=== PATIENT | male | born 1960 | race Caucasian/White ===

== ENCOUNTER 2018-03-31 08:35 | Observation (INO) | payer BC, OTHER ==
[~2018-03-31] VITALS: Ht 170.2 cm; Wt 78.7 kg
[2018-03-31] MEDS ORDERED: APIX5TAB PO (09:04)
[2018-03-31] MEDS ORDERED: METO25TA35 PO (09:04)
[2018-03-31] MEDS ORDERED: ASPIRIN 81 MG TABLET CHEW ONE (09:27)
[2018-03-31] MEDS ORDERED: ASPIRIN 81 MG TABLET CHEW PO ONE (09:30)
[2018-03-31 09:31] LABS: BASOPHILS # (AUTO) 0.04 x10^3/uL (0-0.1); BASOPHILS % (AUTO) 1 % (0-1); EOSINOPHILS # (AUTO) 0.07 x10^3/uL (0-0.4); EOSINOPHILS % (AUTO) 1 % (1-7); LYMPHOCYTES # (AUTO) 1.98 x10^3/uL (1-3.4); LYMPHOCYTES % (AUTO) 30 % (22-44); MD NO; MEAN CORPUSCULAR HEMOGLOBIN 32.4 pg (27.5-34.5); MEAN CORPUSCULAR HGB CONC 34.8 g/dL (33.2-36.2); MEAN CORPUSCULAR VOLUME 93.2 fL (81-97); MEAN PLATELET VOLUME 6.7 fL (7.4-10.4); MONOCYTES # (AUTO) 0.33 x10^3/uL (0.2-0.8); MONOCYTES % (AUTO) 5 % (2-9); NEUTROPHILS % (AUTO) 63 % (42-75); PLATELET COUNT 383 x10^3/uL (130-400); RED BLOOD COUNT 4.56 x10^6/uL (4.38-5.82); RED CELL DISTRIBUTION WIDTH 13.6 % (9.4-14.8)
[2018-03-31 09:42] LABS: ALANINE AMINOTRANSFERASE 23 U/L (12-78); ALBUMIN 3.7 g/dL (3.4-5.0); ANION GAP 6 mmol/L (5-15); CALCIUM 8.5 mg/dL (8.5-10.1); CHLORIDE 107 mmol/L (98-107); CREATININE 1.09 mg/dL (0.7-1.3)
[2018-03-31 09:47] LABS: ALKALINE PHOSPHATASE 46 U/L (45-117); BILIRUBIN,TOTAL 0.4 mg/dL (0.2-1.0); TOTAL PROTEIN 7.5 g/dL (6.4-8.2); TROPONIN I < 0.015 ng/mL (0.000-0.045)
[2018-03-31] MEDS ORDERED: SODIUM CHLORIDE FLUSH 10ML SYR IVF PRN (11:00)
[2018-03-31] MEDS ORDERED: ONDANSETRON ODT 4 MG PO PRN (11:30)
[2018-03-31] MEDS ORDERED: ONDANSETRON 2MG/ML, 2ML IVPush PRN (11:30)
[2018-03-31] MEDS ORDERED: DOCUSATE 100 MG CAPSULE PO PRN (11:30)
[2018-03-31] MEDS ORDERED: LABETALOL 5MG/ML, 20ML IVPush PRN (11:30)
[2018-03-31] MEDS ORDERED: ENALAPRILAT 1.25 MG/ML, 2ML IVPush PRN (11:30)
[2018-03-31] MEDS ORDERED: BISACODYL 10 MG SUPP PR PRN (11:30)
[2018-03-31] MEDS: SODIUM CHLORIDE 0.9% 1,000 ML IV SCH (12:08)
[2018-03-31 12:21] VITALS: BP 142/88
[2018-03-31 13:12] VITALS: BP 126/78
[2018-03-31 15:11] LABS: TROPONIN I < 0.015 ng/mL (0.000-0.045)
[2018-03-31 20:26] VITALS: BP 121/67
[2018-03-31] MEDS: APIXABAN 5 MG TABLET PO SCH (20:29)
[2018-03-31 21:33] LABS: TROPONIN I < 0.015 ng/mL (0.000-0.045)
[2018-04-01] MEDS: SODIUM CHLORIDE 0.9% 1,000 ML IV SCH (00:40)
[2018-04-01 01:10] VITALS: BP 121/77
[2018-04-01 05:34] LABS: BASOPHILS # (AUTO) 0.04 x10^3/uL (0-0.1); BASOPHILS % (AUTO) 1 % (0-1); EOSINOPHILS # (AUTO) 0.16 x10^3/uL (0-0.4); EOSINOPHILS % (AUTO) 3 % (1-7); LYMPHOCYTES # (AUTO) 2.17 x10^3/uL (1-3.4); LYMPHOCYTES % (AUTO) 37 % (22-44); MD NO; MEAN CORPUSCULAR HEMOGLOBIN 32.7 pg (27.5-34.5); MEAN CORPUSCULAR HGB CONC 34.8 g/dL (33.2-36.2); MEAN CORPUSCULAR VOLUME 93.8 fL (81-97); MEAN PLATELET VOLUME 6.9 fL (7.4-10.4); MONOCYTES # (AUTO) 0.36 x10^3/uL (0.2-0.8); MONOCYTES % (AUTO) 6 % (2-9); NEUTROPHILS # (AUTO) 3.15 x10^3/uL (1.8-6.8); NEUTROPHILS % (AUTO) 54 % (42-75); PLATELET COUNT 341 x10^3/uL (130-400); RED BLOOD COUNT 4.33 x10^6/uL (4.38-5.82); RED CELL DISTRIBUTION WIDTH 13.1 % (9.4-14.8)
[2018-04-01 05:52] LABS: CHLORIDE 109 mmol/L (98-107)
[2018-04-01 06:06] LABS: ALANINE AMINOTRANSFERASE 20 U/L (12-78); ALBUMIN 3.3 g/dL (3.4-5.0); ALKALINE PHOSPHATASE 43 U/L (45-117); ANION GAP 7 mmol/L (5-15); BILIRUBIN,TOTAL 0.2 mg/dL (0.2-1.0); CALCIUM 8.3 mg/dL (8.5-10.1); CHOLESTEROL, TOTAL 233 mg/dL (140-239); CREATININE 1.11 mg/dL (0.7-1.3); FREE T4 (FREE THYROXINE) 0.89 ng/dL (0.76-1.46); HDL CHOL % 17 % (26-37); HDL CHOLESTEROL (DIRECT) 39 mg/dL (40-60); LDL CHOLESTEROL,CALCULATED 146 mg/dL (54-169); LDL/HDL RATIO 3.7 (0.5-3.0); TOTAL PROTEIN 6.8 g/dL (6.4-8.2); TRIGLYCERIDES 241 mg/dL (50-200); VLDL CHOLESTEROL 48 mg/dL (0-25)
[2018-04-01 06:45] VITALS: BP 139/80
[2018-04-01] MEDS: APIXABAN 5 MG TABLET PO SCH (08:11)
[2018-04-01] MEDS ORDERED: SENNA/DOCUSATE TABLET PO SCH (09:00)
[2018-04-01 12:23] VITALS: BP 121/73
[2018-04-01] MEDS ORDERED: SIMV40TA3 PO (13:12)
[2018-04-01] MEDS ORDERED: SIMVASTATIN 40 MG TABLET PO SCH (21:00)
== END 2018-04-01 14:31 | disposition home or self-care (01) ==
LOC: ED 09:49 → EDIP 10:47 → INTOOBSV 10:47 → 5SO 11:40 → DCLOUNGE 04-01 14:23
PROVIDERS: ADMIT Internal Medicine; ATTEND Internal Medicine
DX: R07.9 Chest pain, unspecified (principal); I48.0 Paroxysmal atrial fibrillation; I10 Essential (primary) hypertension; E78.5 Hyperlipidemia, unspecified; F17.210 Nicotine dependence, cigarettes, uncomplicated; K85.00 Idiopathic acute pancreatitis without necrosis or infection; Z82.49 Family history of ischemic heart disease and other diseases of the circulatory system
CPT/HCPCS: 0399T; 36415; 71045; 76700; 78452; 80053; 80061; 83690; 83735; 84100; 84439; 84443; 84484; 85025; 93005; 93017; 93306; 96360; 96361; 99285; A9502; C9898; G0378; J7030

== ENCOUNTER 2018-12-23 08:19 | Emergency (ER) | payer OTHER ==
[~2018-12-23] VITALS: Ht 170.2 cm; Wt 73.0 kg
[~2018-12-23 08:19] MED LIST: APIX5TAB PO; METO25TA35 PO; SIMV40TA3 PO
--- NOTE | 2018-12-23 08:45 | NUR ---
SANITATION SUPERVISOR: PT NOT IN LOBBY AT THIS TIME
--- NOTE | 2018-12-23 08:53 | NUR ---
CONCRETE PRODUCTS MACHINE OPERATOR: NO ANSWER FROM LOBBY AT THIS TIME
--- NOTE | 2018-12-23 09:00 | NUR ---
DISPATCH MANAGER: PT NOT IN LOBBY AT THIS TIME
== END 2018-12-23 09:04 | disposition left against medical advice (07) ==
LOC: ED 08:54
DX: R00.2 Palpitations (principal); I48.91 Unspecified atrial fibrillation; Z53.21 Procedure and treatment not carried out due to patient leaving prior to being seen by health care provider
CPT/HCPCS: 93005